=== PATIENT | female | born 1955 | race Caucasian/White ===

== ENCOUNTER 2024-02-24 11:58 | Emergency (ER) | payer MEDICARE, OTHER, SELFPAY ==
[2024-02-24 12:07] VITALS: BP 165/99
[2024-02-24 12:32] VITALS: BMI 20.7
[2024-02-24 12:56] LABS: % Basophils 0.5 % (0-2); % Eosinophils 0.1 % (0-6); % Immature Granulocytes 0.4 % (0-0.5); % Lymphocytes 13.6 % (20.5-51.1); % Neutrophils 81.4 % (42.2-75.2); Absolute Lymphocytes 1.1 10^3/uL (1.2-3.4); Absolute Monocytes 0.3 10^3/uL (0.1-0.6); Absolute Neutrophils 6.4 10^3/uL (1.4-6.5); Hematocrit 40.4 % (37.0-47.0); Hemoglobin 14.5 g/dL (12.0-16.0); Mean Corp Hgb Conc. 35.9 g/dL (33.0-37.0); Mean Corpuscular Hgb 30.4 pg (27.0-31.0); Mean Corpuscular Volume 84.7 fL (81.0-99.0); Nucleated Red Blood Cells % 0 %; Platelet Count 279 10^3/uL (130-400); Red Blood Cell Count 4.77 10^6/uL (4.20-5.40); White Blood Cell Count 7.8 10^3/uL (4.8-10.8)
[2024-02-24 12:57] LABS: ALT (SGPT) 22 U/L (0-35); AST (SGOT) 27 U/L (14-36); Albumin 4.8 g/dl (3.5-5.0); Alkaline Phosphatase 70 U/L (38-126); Blood Urea Nitrogen 11 mg/dl (7-17); Calcium 9.6 mg/dl (8.4-10.2); Carbon Dioxide 27 mmol/L (22-30); Chloride 102 mmol/L (98-107); Estimated Creatinine Clearance 49 ml/min; Glucose 116 mg/dl (70-99); Lipase 332 U/L (23-300); Potassium 3.6 mmol/L (3.5-5.1); Sodium 139 mmol/L (135-145); Total Bilirubin 0.7 mg/dl (0.2-1.3); Total Protein 7.7 g/dl (6.3-8.2); eGFR > 60.00
[2024-02-24] MEDS: OMNIPAQUE 50 ML PO (13:10)
--- NOTE | 2024-02-24 13:14 | ED.GENMED ---
History of Present Illness
General
Chief Complaint: Abdominal Symptoms
Time Seen by Provider: 02/24/24 12:38
Travel History
Have you had any contact with someone who has COVID-19?: No
Do you have any symptoms of coronavirus? Fever > 100 degrees, chills, cough, shortness of breath, sore throat, loss of taste or smell, muscle aches, or headache?: No
History of Present Illness
History of Present Illness:
68-year-old female with history of diverticulosis presenting to the emergency department for right lower quadrant abdominal pain. Patient reports symptoms started about 5 days ago after Pilates class. Pain was initially intermittent, has become
more constant. She became concerned when she lost her appetite yesterday. Notes some mild constipation. Denies any vomiting, mild nausea. Denies any fever. Denies any abdominal surgeries in the past. Reports that she has had diverticulitis in
the past, however feels that this pain is different. She has not tried any medications for pain. Denies any chest pain or difficulty breathing. Denies any complaints. Denies additional acute medical complaints.
Past History
Past History
ED Past Medical History: Other (colitis, pneumonia)
ED Past Surgical History: None
Social History
Tobacco: Non-smoker
Alcohol: None
Drug: None
Personal:
Living: with family
Employment: Employed
Phy Exam
Physical Exam
Physical Exam:
GENERAL: Alert , in no apparent distress
EYE: pupils equal and reactive
NECK: Supple, no significant adenopathy.
ENT: o/p clr, mmm.
CARDIAC: Regular rate and rhythm .
LUNGS: Clear breath sounds bilaterally, no acute respiratory distress, no wheezes/rales/rhonchi
ABDOMEN: Soft, minimal right lower quadrant tenderness
NEUROLOGICAL: Alert and oriented, no focal neuro deficits
SKIN: Warm and dry, skin intact.
MUSCULOSKELETAL: No edema, well perfused.
PSYCH: Normal and appropriate interaction.
Course
Orders/Labs/Results
Orders:
Orders
02/24/24 12:29
Complete Blood Count/With Diff Urgent
Comprehensive Metabolic Panel Urgent
Lipase Urgent
Urinalysis Reflex To Culture Urgent
Date Specimen was Collected: 02/24/24
Time Specimen was Collected: 12:22
Urine Microscopic Reflex Cult Urgent
02/24/24 13:02
CT Abd/pel W Iv And Oral Contr Urgent
Comment:
Reason For Exam: RLQ pain
Iohexol [Omnipaque] See Protocol PO NOW STA
Abnormal Lab Results
02/24/24
12:29
Absolute Lymphs (auto) 1.1 L 10^3/uL
(1.2-3.4)
Neutrophils % 81.4 H %
(42.2-75.2)
Lymphocytes % 13.6 L %
(20.5-51.1)
Glucose 116 H mg/dl
(70-99)
Lipase 332 H U/L
(23-300)
Urine Ketones Trace A
(Negative)
Ur Occult Blood Reflex 2+ A
(Negative)
Urine RBC 3-6 A /HPF
(0-2)
02/24/24 12:29
02/24/24 12:29
Vital Signs
Initial and Last Documented VS:
Initial Vital Signs
Temp Pulse Resp BP Pulse Ox
98.0 F 112 16 165/99 98
02/24/24 12:07 02/24/24 12:07 02/24/24 12:07 02/24/24 12:07 02/24/24 12:07
Last Documented Vital Signs
Temp Pulse Resp BP Pulse Ox
98.0 F 112 16 165/99 98
02/24/24 12:07 02/24/24 12:07 02/24/24 12:07 02/24/24 12:07 02/24/24 12:07
MDM/Problems Addressed
MDM/Problems Addressed:
68-year-old female with history of diverticulosis presenting to the emergency department for right lower quadrant pain for 5 days. Vital signs on arrival are significant for mild hypertension tachycardia, however patient admits to being very
anxious.
On physical exam, patient is very well-appearing, not sick, no acute distress. On abdominal exam, minimal tenderness to the right lower quadrant, without rebound or guarding. Overall low suspicion for acute appendicitis given duration of symptoms,
absence of significant GI symptoms. However patient herself has significant concerns for appendicitis.. Diverticulitis is also a consideration given patient's GI issues in the past. She has also had some constipation, which could be contributing
to pain. Possible urinary tract infection. Plan for laboratory analysis, urinalysis CT abdominal imaging with IV and oral contrast. Patient declining any pain medication at this time.
17:00 -patient is labs unremarkable. Delay in disposition pending CT abdominal imaging. CT without acute intra-abdominal pathology. Normal appendix. At this time without concern for serious intra-abdominal process. Continue suspicion for
musculoskeletal component. Feel stable for discharge with close interval follow-up with PCP. Advised outpatient supportive therapy. Return precautions discussed and patient verbalized understanding.
*Critical Care Note
Total Time (30-74mins, 75-104mins- exclusive of procedures): Not Applicable
ED Attending Note
-
Portions of this chart may have been created with voice recognition software.� Occasional wrong word or��sound alike� substitutions may have occurred due to the inherent limitations of voice recognition software.
Discharge Plan
Departure
Prescriptions:
No Action
levofloxacin 500 MG tablet
500 mg PO DAILY 10 Days 0RF
cefdinir 300 mg capsule
300 mg PO BID Qty: 13 0RF
Referrals:
PRIVATE,PHYSICIAN [Family Provider] -
Interventions
Interventions:
*Risk Screen - Suicide Last Done: 02/24/24 12:32
*General Assessment Last Done: 02/24/24 12:32
*Neglect/Abuse Screening Last Done: 02/24/24 12:32
*ED COVID-19 Vaccine History Last Done: 02/24/24 12:07
EL-Whqjvp-Ogyblwmkmj Assessment Last Done: 02/24/24 12:32
Discharge Date and Time
Print Language: MALIAN
[2024-02-24 13:18] LABS: Urine Albumin Trace (Neg - Trace); Urine Bilirubin Negative (Negative); Urine Character Clear (Clear); Urine Color Yellow; Urine Glucose Negative (Negative); Urine Ketone Trace (Negative); Urine Leukocyte Negative (Negative); Urine Nitrite Negative (Negative); Urine Occult Blood 2+ (Negative); Urine Specific Gravity 1.015 (<1.030); Urine Urobilinogen Negative (Neg - 1+)
[2024-02-24 14:44] LABS: Urine Amorphous Seen; Urine Hyaline Cast >15 /LPF (0-2); Urine Mucus Many; Urine Squamous Cell >30 /LPF (Few)
[2024-02-24 14:49] LABS: Urine White Cell 0-2 /HPF (0-5)
== END 2024-02-24 17:49 | disposition home or self-care (01) ==
LOC: EMR 11:58
PROVIDERS: Emergency Medicine; EMERGENCY PHYSICIAN Student in an Organized Health Care Education/Training Program
DX: R10.31 Right lower quadrant pain (principal); K59.00 Constipation, unspecified; R00.0 Tachycardia, unspecified; K52.9 Noninfective gastroenteritis and colitis, unspecified; I10 Essential (primary) hypertension; Z87.01 Personal history of pneumonia (recurrent)
CPT/HCPCS: 99285; 74177; 80053; 81003; 81015; 83690; 85025; Q9967